=== PATIENT | male | born 1945 | race Caucasian/White ===

== ENCOUNTER 2019-03-27 18:14 | Emergency (ER) | payer SELFPAY ==
[2019-03-27] MEDS ORDERED: Tetan/Diph/Pertus SYR(Tdap)* 0.5 ML SYR(BOOSTRIX) use SYR IM ONE (19:02)
--- NOTE | 2019-03-27 19:05 | ED ---
Head Injury - HPI Summary HPI Summary: 73-year-old male presents with facial laceration today. He states that he missed a step striking his left side of his forehead on a step. Denies any loss consciousness. Does state he has a lot of headache and was dizzy. He does admit to some blurry vision. He is on a daily aspirin. No other blood thinners. Area is not actively bleeding. Unsure when last tetanus was. He denies any foreign body in the wound. No neck pain. No other injury. - History Of Current Complaint Chief Complaint: EDHeadInjury Stated Complaint: FACE LAC PER PT Time Seen by Provider: 03/27/19 18:56 Pain Intensity: 0 - Allergies/Home Medications Allergies/Adverse Reactions: Allergies Allergy/AdvReac Type Severity Reaction Status Date / Time No Known Allergies Allergy Verified 03/27/19 18:23 Home Medications: Home Medications Aspirin [Aspirin EC] 1 tab PO DAILY 03/27/19 [History Confirmed 03/27/19] PMH/Surg Hx/FS Hx/Imm Hx Endocrine/Hematology History: Denies: Hx Anticoagulant Therapy Cardiovascular History: Denies: Hx Myocardial Infarction Infectious Disease History: No Infectious Disease History: Denies: Traveled Outside the [place] in Last 30 Days - Family History Known Family History: Positive: Non-Contributory - Social History Alcohol Use: Occasionally Substance Use Type: Reports: None Smoking Status (MU): Never Smoked Tobacco Review of Systems Negative: Fever Negative: Chest Pain Negative: Shortness Of Breath Positive: Other - laceration face Positive: Headache All Other Systems Reviewed And Are Negative: Yes Physical Exam Triage Information Reviewed: Yes Vital Signs On Initial Exam: Initial Vitals Temp Pulse Resp BP Pulse Ox 98.1 F 53 99 03/27/19 18:16 03/27/19 18:16 03/27/19 18:16 03/27/19 18:16 03/27/19 18:16 Vital Signs Reviewed: Yes Appearance: Positive: Well-Appearing Skin: Positive: Warm, Dry, Other - 4cm by 1cm laceration above left eyebrow Head/Face: Positive: Normal Head/Face Inspection Eyes: Positive: Normal, EOMI, ALMA, Conjunctiva Clear ENT: Positive: Pharynx normal Neck: Positive: Other: - nontender neck Respiratory/Lung Sounds: Positive: Clear to Auscultation, Breath Sounds Present Cardiovascular: Positive: Normal, RRR Musculoskeletal: Positive: Normal Neurological: Positive: Sensory/Motor Intact, Alert, Oriented to Person Place, Time, CN Intact II-III Psychiatric: Positive: Normal - Joanne Coma Scale Best Eye Response: 4 - Spontaneous Best Motor Response: 6 - Obeys Commands Best Verbal Response: 5 - Oriented Coma Scale Total: 15 Diagnostics - Vital Signs Vital Signs Temp Pulse Resp BP Pulse Ox 03/27/19 18:16 98.1 F 53 19 99 - Laboratory Lab Statement: Any lab studies that have been ordered have been reviewed, and results considered in the medical decision making process. - CT brain CT Interpretation Completed By: Radiologist Summary of CT Findings: IMPRESSION: 1. There is age-related diffuse cerebral and cerebellar volume loss and chronic. microvascular ischemic disease. 2. No acute intracranial pathology. Head Injury Course/Dx Course Of Treatment: 73-year-old male presents with facial laceration today. He states that he missed a step striking his left side of his forehead on a step. Denies any loss consciousness. Does state he has a lot of headache and was dizzy. He does admit to some blurry vision. He is on a daily aspirin. No other blood thinners. Area is not actively bleeding. Unsure when last tetanus was. He denies any foreign body in the wound. No neck pain. No other injury. On exam has 4 cm laceration above left eyebrow. Normal neuro exam. CT shows no acute findings. got CT due to age. 7 sutures placed after wound was cleaned. gave tetanus. told to keep clean and dry. patient understand and agrees with plan. - Diagnoses Differential Diagnosis/HQI/PQRI: Contusion, Intracranial Bleed, Laceration Provider Diagnoses: Facial laceration, Head injury Discharge - Sign-Out/Discharge Documenting (check all that apply): Patient Departure Patient Received Moderate/Deep Sedation with Procedure: No - Discharge Plan Condition: Good Disposition: HOME Patient Education Materials: Care For Your Stitches (ED) Referrals: No Primary Care Phys,NOPCP [Primary Care Provider] - Additional Instructions: Keep area clean and dry for 24 hours Take Tylenol for pain every [address] ice on the area Return to ED or primary for suture removal in 5 days Return to ED if develop signs of infection such as fever, spreading redness, or pus formation - Billing Disposition and Condition Condition: GOOD Disposition: Home
[2019-03-27] MEDS ORDERED: Lidocaine 2% EPI 1:200000 MPF*10-20 ML VIAL INJ ONE (19:19)
[2019-03-27 20:35] VITALS: BP 179/85
== END 2019-03-27 20:35 | disposition home or self-care (01) ==
LOC: ED 18:14
DX: S01.81XA Laceration without foreign body of other part of head, initial encounter (principal); W10.9XXA Fall (on) (from) unspecified stairs and steps, initial encounter; Y92.9 Unspecified place or not applicable; R51 Headache
CPT/HCPCS: 70450; 70486; 90715; 96372; 99281